=== PATIENT | male | born 1955 | race Caucasian/White ===

== ENCOUNTER → 2017-03-03 | Outpatient (CLI) | payer BC ==
[~2017-03-03] MED LIST: FLM4 PO; LANS15CA6 PO; POTATAB PO
--- NOTE | 2017-03-03 16:20 | DIAGNOSTIC IMAGING REPORT ---
KUB CLINICAL HISTORY: 61 years-old Male presenting with NEPHROLITHIASIS. TECHNIQUE: Single supine view of the abdomen was obtained. COMPARISON: 11/09/2015. FINDINGS: The renal shadows are partially obscured by stool. No focal calcifications identified in the regions of the kidneys or along the course of the ureters. Midline calcification in the pelvis again noted, unchanged and most likely phlebolith. Normal bowel gas pattern. No evidence of free intraperitoneal gas, pneumatosis, or portal venous gas. Degenerative changes of the lumbar spine. Lung bases clear. IMPRESSION: 1. No calculi identified. Electronically signed by: Sharif Clark 03/03/2017 4:19 PM Dictated Date/Time: 03/03/2017 4:16 PM
== END | disposition home or self-care (01) ==
LOC: C.RADBC 15:46
PROVIDERS: ATTEND Urology
DX: N20.0 Calculus of kidney (principal)

== ENCOUNTER → 2018-03-22 | Outpatient (CLI) | payer BC ==
--- NOTE | 2018-03-22 13:31 | DIAGNOSTIC IMAGING REPORT ---
KUB CLINICAL HISTORY: N20.0 Nephrolithiasis nephrocalcinosis COMPARISON STUDY: 03/03/2017 FINDINGS: The soft tissues, psoas shadows, renal outlines and intestinal gas pattern appear normal. There is no evidence for bowel obstruction. No abnormal abdominal calcifications are seen. IMPRESSION: Normal study. The above report was generated using voice recognition software. It may contain grammatical, syntax or spelling errors. Electronically signed by: Jose L Francisco M.D. 03/22/2018 1:30 PM Dictated Date/Time: 03/22/2018 1:29 PM
[2018-03-22 17:41] LABS: BLOOD UREA NITROGEN 19 mg/dl (7-18); CREATININE 1.25 mg/dl (0.60-1.40)
== END | disposition home or self-care (01) ==
LOC: C.RADBC 13:11
PROVIDERS: ATTEND Urology
DX: Z00.00 Encounter for general adult medical examination without abnormal findings (principal); N20.0 Calculus of kidney